=== PATIENT | female | born 1975 | race Hispanic/Latino ===

== ENCOUNTER 2018-06-01 09:20 | Emergency (ER) | payer SELFPAY ==
[2018-06-01 09:57] LABS: Bilirubin Negative (Negative); Blood, Urine Trace (Negative); Clarity Clear (Clear); Glucose, Urine (Dipstick) Negative (Negative); Leukocyte Trace (Negative); Nitrite Negative (Negative); Protein, Urine (Dipstick) Negative (Neg-Trace); Specific Gravity, Urine 1.015 (1.005-1.030); Urobilinogen 0.2 mg/dL (0.2-1.0)
[2018-06-01 10:06] LABS: Bacteria/HPF Rare-Few HPF (None Seen); RBC/HPF 0-3 HPF (0-3); WBC/HPF 0-3 HPF (0-3)
[2018-06-01] MEDS ORDERED: Ketorolac Tromethamine 60 MG/2 ML VIAL ONE (11:00)
--- NOTE | 2018-06-01 11:05 | CT ---
CT ABDOMEN AND PELVIS NONCONTRAST: Date: 06/01/18 HISTORY: Left flank pain. FINDINGS: Each renal collecting system, ureter, and the urinary bladder are decompressed without stone evident. Lack of contrast limits evaluation for other abnormalities. No inflammation of the left lower quadran t is apparent. Reactive appearing inguinal lymph nodes bilaterally. Liver is diffusely hypodense. IMPRESSION: 1. No CT evidence of urinary tract obstruction or calcification. 2. Hepatosteatosis. POS: [facility]
== END 2018-06-01 11:09 | disposition home or self-care (01) ==
LOC: MADERS 09:20
DX: B02.9 Zoster without complications (principal)
CPT/HCPCS: 74176; 81003; 81015; 96372; J1885